=== PATIENT | female | born 1985 | race Caucasian/White ===

== ENCOUNTER 2018-09-04 08:30 | Inpatient (IN) | payer MEDICAID ==
[~2018-09-04] VITALS: Ht 167.6 cm; Wt 91.8 kg
[2018-09-04 09:39] VITALS: Ht 167.6 cm; Wt 91.8 kg
[2018-09-04 09:41] VITALS: BP 117/84; PULSE 95; RESP 18
[2018-09-04] MEDS ORDERED: LACTATED RINGER'S 1,000 ML IV PRN (09:43)
[2018-09-04] MEDS ORDERED: OXYTOCIN 30 UNITS/LR 500 ML IV SCH ×2 (10:00)
[2018-09-04] MEDS ORDERED: LIDOCAINE 1% (MPF) 30 ML INJ INJ PRN (10:00)
[2018-09-04] MEDS ORDERED: OXYCODONE/ASPIRIN (4.88/325) TAB PO PRN (10:00)
[2018-09-04] MEDS ORDERED: METHYLERGONOVINE 0.2 MG INJ IM PRN (10:00)
[2018-09-04] MEDS ORDERED: CARBOPROST 250 MCG INJ IM PRN (10:00)
[2018-09-04] MEDS ORDERED: MISOPROSTOL 200 MCG TAB PR PRN (10:00)
[2018-09-04] MEDS ORDERED: IBUPROFEN 600 MG TAB PO PRN (10:00)
[2018-09-04] MEDS ORDERED: OXYTOCIN 30 UNITS/LR 500 ML IV PRN (10:00)
[2018-09-04] MEDS ORDERED: AMPICILLIN 2 GM/NS (PMX) 100 ML IV ONE (10:00)
[2018-09-04] MEDS: LACTATED RINGER'S 1,000 ML IV SCH ×2 (11:02→20:23)
[2018-09-04] MEDS: MISOPROSTOL 50 MCG CAPSULE PO SCH ×4 (12:00→21:00)
[2018-09-04] MEDS: AMPICILLIN 1 GM/NS (PMX) 50 ML IV SCH ×3 (14:55→23:16)
[2018-09-04] MEDS ORDERED: MINERAL OIL LIGHT 10 ML VIAL TOP PRN (16:00)
--- NOTE | 2018-09-04 20:27 | HP ---
Date/Time of Note Date/Time of Note DATE: 09/04/18 TIME: 20:19 OB - History Hx of Present Free Text/Dictation 32 years old female 1 para 0 with a EDC of 09/03/2018 this patient had been a late admission and she had a EDC by early ultrasound on August 18 and last period of November 2017 unknown day, the patient came to see me at 35 weeks but she had previous lab work and everything had been within the normal limits with no contribution except that she had GBS positive and needed IV antibiotics .The patient baby's weight was 7,14 and she was uncomfortable holger at home and she was admitted forinduction of labor. Last Menstrual Period: Nov 24, 2017 Estimated Due Date: Sep 03, 2018 : 1 Para: 0 Care: Good Care Ultrasounds: Normal mid trimester US Obstetrical Complications: None Medical Complications: None Past Family/Social History * Past Medical, Surgical, Family and Obstetric Histories reviewed from chart. Blood Type: O+ Rubella: immune RPR/VDRL: Negative GBS Status: Positive HBsAG: Negative OB Admission Exam Vital Signs Vital Signs Vital Signs Date Temp Pulse Resp B/P (MAP) Pulse Ox O2 O2 Flow FiO2 Time Delivery Rate 09/04/18 97.7 95 18 117/84 Room Air 09:41 (95) Physical Exam HEENT: WNL Heart: Rhythm Normal Lungs: Clear, Equal Abdomen: WNL Extremities: Normal Reflexes: Normal Cervical Dilatation: 2cm Effacement: 50% Station: -2 Membranes: Intact Accelerations: Accelerations Present Decelerations: No Decelerations Varibility: Moderate Contractions on Admission: 6-10 Minutes Apart Intensity: Mild Last 72 hours Lab Results CBC & BMP 09/04/18 10:40 CARMELLA VAZQUEZ MD Sep 04, 2018 20:27
[2018-09-05] MEDS: LACTATED RINGER'S 1,000 ML IV SCH ×2 (00:39→10:15)
[2018-09-05] MEDS: AMPICILLIN 1 GM/NS (PMX) 50 ML IV SCH ×4 (03:59→16:12)
[2018-09-05] MEDS: MISOPROSTOL 50 MCG CAPSULE PO SCH ×2 (06:21→10:14)
[2018-09-05] MEDS ORDERED: OXYTOCIN 30 UNITS/LR 500 ML IV PRN ×3 (13:00→19:00)
[2018-09-05] MEDS ORDERED: MISOPROSTOL 200 MCG TAB PR PRN ×3 (13:00→19:00)
[2018-09-05] MEDS ORDERED: LIDOCAINE 1% (MPF) 30 ML INJ INJ PRN ×2 (13:00→18:00)
[2018-09-05] MEDS ORDERED: OXYTOCIN 30 UNITS/LR 500 ML IV SCH ×6 (13:00→18:00)
[2018-09-05] MEDS ORDERED: METHYLERGONOVINE 0.2 MG INJ IM PRN ×3 (13:00→19:00)
[2018-09-05] MEDS ORDERED: CARBOPROST 250 MCG INJ IM PRN ×3 (13:00→19:00)
[2018-09-05] MEDS: BUTORPHANOL 2 MG INJ IV PRN ×2 (13:38→16:12)
--- NOTE | 2018-09-05 18:56 | LDN ---
Date/Time of Note Date/Time of Note DATE: 09/05/18 TIME: 18:53 Delivery Summary Spontaneous vaginal delivery precipitous. Baby girl 9. No lacerations No bleeding Weeks of Gestation 40.2 weeks Placenta Delivered: Spontaneously Meconium: none Episiotomy: No Anesthesia type: None Sponge & Needle done & correct: Yes All needle counts correct: Yes Any foreign bodies felt in the: No Delivery Information Sex Sex: female Apgars 1 Minute: 9 5 Minute: 9 Suctioning Nose & mouth suctioned at gabriela: Yes Umbilical Cord Umbilical cord with: 3 Vessels Cord presentations: no nuchal cord Cord Blood was obtained: Yes Mother & Baby Disposition Disposition Mom & Baby to Maternity; Good: Yes CARMELLA VAZQUEZ MD Sep 05, 2018 18:56
[2018-09-05] MEDS ORDERED: DIPHENHYDRAMINE 25 MG CAP PO PRN (19:00)
[2018-09-05] MEDS ORDERED: DIPHENHYDRAMINE 50 MG INJ IV PRN (19:00)
[2018-09-05] MEDS ORDERED: ACETAMINOPHEN 325 MG TAB PO PRN ×2 (19:00)
[2018-09-05] MEDS ORDERED: DIBUCAINE 1% 30 GM OINT TOP PRN (19:00)
[2018-09-05] MEDS ORDERED: MAGNESIUM HYDROXIDE 30ML CUP PO PRN (19:00)
[2018-09-05] MEDS ORDERED: HYDROCODONE/APAP (5/325) TAB PO PRN ×2 (19:00)
[2018-09-05] MEDS ORDERED: ONDANSETRON 4 MG TAB PO PRN (19:00)
[2018-09-05] MEDS ORDERED: ONDANSETRON 4 MG INJ IV PRN (19:00)
[2018-09-05] MEDS ORDERED: SENNA/DOCUSATE NA (8.6MG/50MG) TAB PO PRN (19:00)
[2018-09-05 20:40] VITALS: BP 161/77; PULSE 80; RESP 18
[2018-09-06 00:20] VITALS: BP 158/82; PULSE 85; RESP 20
[2018-09-06] MEDS: BENZOCAINE 20% 56 ML SPRAY TOP PRN ×2 (01:11→22:04)
[2018-09-06] MEDS: LANOLIN HPA 1 PKT TOP PRN ×2 (01:11→22:04)
[2018-09-06] MEDS: LACTATED RINGER'S 1,000 ML IV SCH ×2 (01:14→01:43)
[2018-09-06] MEDS: AMPICILLIN 1 GM/NS (PMX) 50 ML IV SCH ×4 (01:14→06:00)
[2018-09-06] MEDS: LACTATED RINGER'S 1,000 ML IV* SCH ×2 (01:15→02:53)
[2018-09-06 03:08] VITALS: BP 135/96; PULSE 61; RESP 20
[2018-09-06 05:18] VITALS: BP 131/79; PULSE 75; RESP 18
[2018-09-06] MEDS: IBUPROFEN 800 MG TAB PO SCH ×5 (06:45→23:43)
[2018-09-06 07:50] VITALS: BP 129/75; PULSE 68; RESP 18
--- NOTE | 2018-09-06 12:53 | PN ---
Date/Time of Note Date/Time of Note DATE: 09/06/18 TIME: 12:52 OB Subjective Subjective Subjective Day 1 post vaginal delivery No complaints Breast-feeding Uterus contracted Lochia normal, extremities normal OB Objective HEENT: WNL Heart: Rhythm Normal Lungs: Clear, Equal Abdomen: WNL Extremities: Normal Reflexes: Normal CARMELLA VAZQUEZ MD Sep 06, 2018 12:53
[2018-09-06 15:55] VITALS: BP 132/86; PULSE 83; RESP 18
[2018-09-06 19:30] VITALS: BP 136/99; PULSE 77; RESP 18
[2018-09-07 04:23] VITALS: BP 131/81; PULSE 81; RESP 17
[2018-09-07] MEDS: IBUPROFEN 800 MG TAB PO SCH ×2 (06:30→11:37)
[2018-09-07 08:00] VITALS: BP 137/96; PULSE 64; RESP 18
[2018-09-07] MEDS ORDERED: DIPHTH/TET/ACEL PERTUSS (ADULT) 0.5 ML VIAL IM* ONE (09:00)
[2018-09-07] MEDS ORDERED: VARICELLA VACCINE LIVE/PF 1,350 UNIT/0.5 ML ML SC* ONE (09:00)
[2018-09-07] MEDS ORDERED: MEASLES,MUMPS,RUBELLA VACCINE INJ SC* ONE (09:00)
[2018-09-07 11:37] VITALS: BP 126/76; PULSE 80
--- NOTE | 2018-09-07 12:10 | PD.PPDC ---
[facility] [employer] DEPUTY CLERK Discharge Instruction Condition [id number] Patient Condition: [id number] Good Diet [id number] Diet: Rpepm2z Resume Regular Diet Activity/Restrictions [id number] Activity: [id number] Normal Activity May Shower [id number] Restrictions: [id number] No Exercising No Lifting No Driving No Sexual Activity Nothing in the Vagina No [place] No Tampons, douche Follow-up Follow-up with Physician: 1, 2, Week/Weeks Return to clinic for [id number] [employer] Instructions: Cwnby6s Fever greater than 101 Chills Worsening abdominal pain Excessive Vaginal Bleeding More than 2 pads per hour Unable to tolerate diet [id number] OB Instructions: Atgds3i Breast Tenderness Depression Blurried Vision Headache CARMELLA VAZQUEZ MD Sep 07, 2018 12:10
--- NOTE | 2018-09-07 12:11 | DS ---
Date/Time of Note Date/Time of Note DATE: 09/07/18 TIME: 12:11 Obstetrical Discharge Record Final Diagnosis Final Diagnosis: Term delivered Vaginal Delivery Obstetrical Delivery: Spontaneous Complications Induction: Yes Condition on Discharge Physical Assessment Voiding: Yes Bowel Movement: Yes Breast: Soft, non-tender, Filling Fundus: Firm Calf Tenderness: No Patient Condition: Good CARMELLA VAZQUEZ MD Sep 07, 2018 12:11
--- NOTE | 2018-09-08 15:25 | DELSUM ---
Delivery Summary A-C Datetime Report Generated by CPN: 09/08/2018 15:25 DELIVERY PERSONNEL Supervisor Delivery Department: [facility] MATERNAL INFORMATION Delivery Anesthesia: Local Medications in Delivery: pitocin Delivery QBL (ml): 200 Placenta Cultured: No Maternal Complications: None LABOR SUMMARY EDC: 09/03/2018 00:00 No. Babies in Womb: 1 Attempted: No Labor Anesthesia: None LABOR INFORMATION Reason for Induction: Postterm Onset of Labor: 09/04/2018 10:15 Complete Dilatation: 09/05/2018 18:18 Cervical Ripening Agents: Cytotec @ 50 po #5 Group B Beta Strep: Positive Antibiotics # of Doses: 8 Antibiotics Time of Last Dose: 09/05/2018 16:00 Steroids Given: None Reason Steroids Not Administered: Not Applicable MEMBRANES Membranes Rupture Method: Artificial Rupture of Membranes: 09/05/2018 12:49 Length of Rupture (hr): 5.65 Amniotic Fluid Color: Clear Amniotic Fluid Amount: Large Amniotic Fluid Odor: None STAGES OF LABOR Stage 1 hr: 32 Stage 1 min: 3 Stage 2 hr: 0 Stage 2 min: 10 Stage 3 hr: 0 Stage 3 min: 5 Total Time in Labor hr: 32 Total Time in Labor min: 18 VAGINAL DELIVERY Episiotomy: None Laceration Extension: First Degree Laceration Type: Vaginal Laceration Repair: No Initial Vag Sponge Count: 10 Final Vag Sponge Count: 10 Sponge Count Correct: Yes Sharps Count Correct: Yes BABY A INFORMATION Infant Delivery Date/Time: 09/05/2018 18:28 Method of Delivery: Vaginal Born in Route : No : N/A Forceps: N/A Vacuum Extraction: N/A Shoulder Dystocia : No SHOULDER DYSTOCIA BABY A Delivery Date/Time: 09/05/2018 18:28 PRESENTATION/POSITION BABY A Presentation: Cephalic Cephalic Presentation: Vertex Vertex Position: Left Occipital Anterior Breech Presentation: N/A PLACENTA INFORMATION BABY A Placenta Delivery Time : 09/05/2018 18:33 Placenta Method of Delivery: Spontaneous Placenta Status: Delivered SCORES BABY A Heart Rate 1 min: >100 bpm Resp Effort 1 min: Good Cry Reflex Irritability 1 min: Cough/Sneeze/Pulls Away Muscle Tone 1 min: Active Motion Color 1 min: Body [place], Extremit Blue SCORE 1 MIN: 9 Heart Rate 5 min: >100 bpm Resp Effort 5 min: Good Cry Reflex Irritability 5 min: Cough/Sneeze/Pulls Away Muscle Tone 5 min: Active Motion Color 5 min: Body [place], Extremit Blue SCORE 5 MIN: 9 INFORMATION BABY A Gestational Age at Delivery: 40.2 Gestational Status: Full Term- 39- 40.6 Weeks Outcome : Liveborn, with signs of life Infant Condition : Stable Sex: Female IDENTIFICATION/MEDS BABY A ID Band Number: [id number] ID Band Location: Right Leg; Left Arm Sensor Applied: Yes Sensor Number: [id number] Sensor Location : Cord Clamp Vitamin K Given : Not Given Erythromycin Given: Not Given WEIGHT/LENGTH BABY A Birthweight (gm): 3565 Infant Weight (lb): 7 Weight (oz): 14 Length (in): 20.00 Length (cm): 50.80 CORD INFORMATION BABY A No. Cord Vessels: 3 Nuchal Cord : N/A Cord Blood Taken: Yes Infant Suction: Mouth; Nose
== END 2018-09-07 14:45 | disposition home or self-care (01) | DRG 807 ==
LOC: L-D 08:48 → PP1 09-05 20:47
PROVIDERS: ADMIT Obstetrics & Gynecology; ATTEND Obstetrics & Gynecology
PROC: 10E0XZZ Delivery of Products of Conception, External Approach (ICD-10-PCS; principal; 2018-09-05)
DX: O62.3 Precipitate labor (principal); Z37.0 Single live birth; O99.824 Streptococcus B carrier state complicating childbirth; Z3A.40 40 weeks gestation of pregnancy
CPT/HCPCS: 76815; 85025; 85610; 85730; 86592; 86850; 86900; 86901; 87340; J0290; J0595; J2590; J7120